=== PATIENT | female | born 1990 | race Caucasian/White ===

== ENCOUNTER 2016-10-12 14:35 | Emergency (ER) | payer MEDICAID ==
[2016-10-12] MEDS ORDERED: MORPHINE SULFATE 10 MG/ML SYRG IV ONE (14:51)
[2016-10-12] MEDS ORDERED: VANCOMYCIN HCL 1.5 GM in DEXTROSE 5 % IN WATER 250 ML IV ONE ×2 (14:52)
[2016-10-12] MEDS ORDERED: MORPHINE SULFATE 10 MG/ML SYRG ONE (14:53)
[2016-10-12] MEDS ORDERED: ONDANSETRON HCL/PF 2 MG/ML VIAL ONE (14:53)
[2016-10-12] MEDS ORDERED: ONDANSETRON HCL/PF 2 MG/ML VIAL IV ONE (14:53)
--- OUTSIDE RECORDS SUMMARY | 2016-10-12 14:53 | XMS REPORT | Continuity of Care Document ---
:1990 Author Organization [employer] [place] [address] Care Team Providers Name Role Phone Any Hernandez Primary Care Provider [phone] Source Comments This disclosure is being made pursuant to the [employer] program and maynot contain all information available regarding this patient.[employer] Active Allergies and Adverse Reactions Allergen Noted Date Severity Reactions Comments No Known Allergies 02/02/2014 Other (See Comments) Current Medications Be aware that medications may not be up to date as of this document. Alwaysverify current medications with the patient. No known medications Active Problems Problem Noted Date Depression 02/02/2014 Borderline personality disorder 10/18/2009 Overview: Overview: ANY HERNANDEZ MD Immunizations Name Dates Previously Given Next Due DTaP 01/04/1998,07/30/1995,04/25/1993,02/13/1993,0 1992 HPV Quadrivalent 01/07/2007 Hep B, Adolescent Or Pediatric 04/25/1993,1992,1992 Hepatitis A pediatric 01/07/2007 HiB PRP-T 07/30/1995,04/25/1993,02/13/1993,1992 MMR 01/04/1998,05/10/1994 Meningococcal Oligosaccharide 01/07/2007 OPV 01/04/1998,07/30/1995,09/26/1993,02/13/1993,0 1992 Tdap 01/07/2007 Social History Tobacco Use Types Packs/Day Years Used Date Former Smoker Smokeless Tobacco: Never Used Alcohol Use Drinks/Week oz/Week Comments No Alcoholic Drinks/day: ALCOHOL USE: NON-DRINKER Last Filed Vital Signs Vital Sign Reading Time Taken Blood Pressure 122/94 04/22/2015 1:44 PM PROJECT ENG Pulse 72 04/22/2015 1:44 PM PROJECT ENG Temperature 37.3 C (99.2 F) 02/15/2015 1:21 PM PROJECT ENG Respiratory Rate 18 04/22/2015 1:44 PM PROJECT ENG Height 1.695 m (5' 6.75") 04/22/2015 1:44 PM PROJECT ENG Weight 146.875 kg (323 lb 12.8 oz) 04/22/2015 1:44 PM PROJECT ENG Body Mass Index 51.12 04/22/2015 1:44 PM PROJECT ENG Oxygen Saturation 99% 07/13/2014 12:14 PM CDT Plan of Care Health Maintenance Due Date Last Done Comments HPV Vaccine (9-26YO) (2 of 2 07/08/2007 01/07/2007 - Female 2 Dose Series) Chlamydia Screening 2008 Pap Smear 2013 Influenza Immunization (#1) 2015 Tetanus/Pertussis (7 - Td) 01/07/2017 01/07/2007, Additional history exists 01/04/1998, 07/30/1995 Results from Last 3 Months Not on file Insurance Payer Benefit Plan / Subscriber ID Type Phone Address Group [employer] [place] [id number] Out of State [phone] [address]: [address] [phone] [place] [id number] GENI HORVATH Vision Self 1990 Home: [address] [phone] [place] [id number]
[2016-10-12] MEDS ORDERED: fentaNYL CITRATE/PF 50 MCG/ML AMPUL IV ONE (15:00)
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
[2016-10-12] MEDS ORDERED: fentaNYL CITRATE/PF 50 MCG/ML AMPUL ONE (15:21)
[2016-10-12] MEDS ORDERED: VANCOMYCIN HCL 1.5 GM in DEXTROSE 5 % IN WATER 500 ML IV ONE ×2 (15:30)
[2016-10-12] MEDS ORDERED: MORPHINE SULFATE 4 MG/ML SYRG ONE (16:00)
[2016-10-12] MEDS ORDERED: MORPHINE SULFATE 4 MG/ML SYRG IV ONE (16:00)
[2016-10-12] MEDS ORDERED: diphenhydrAMINE HCL 50 MG/ML VIAL IV ONE (16:06)
[2016-10-12] MEDS ORDERED: NORMAL SALINE 1,000 ML IV ONE (16:06)
[2016-10-12] MEDS ORDERED: diphenhydrAMINE HCL 50 MG/ML VIAL ONE (17:04)
[2016-10-12 17:32] VITALS: BP 147/93
== END 2016-10-12 17:20 | disposition home or self-care (01) ==
LOC: ER 14:35
PROC: 0J980ZZ Drainage of Abdomen Subcutaneous Tissue and Fascia, Open Approach (ICD-10-PCS; principal; 2016-10-12)
DX: L02.211 Cutaneous abscess of abdominal wall (principal)
CPT/HCPCS: 10061; 96365; 96366; 96375; 99284; J2405

== ENCOUNTER 2016-10-17 14:49 | Emergency (ER) | payer MEDICAID ==
--- OUTSIDE RECORDS SUMMARY | 2016-10-17 15:22 | XMS REPORT | Continuity of Care Document ---
:1990 Author Organization [employer] [place] [address] Care Team Providers Name Role Phone Any Hernandez Primary Care Provider [phone] Source Comments This disclosure is being made pursuant to the [employer] program and maynot contain all information available regarding this patient.[employer] Active Allergies and Adverse Reactions Allergen Noted [...] Taken Blood Pressure 122/94 04/22/2015 1:44 PM EXTRUSION DIE REPAIR MANAGER Pulse 72 04/22/2015 1:44 PM EXTRUSION DIE REPAIR MANAGER Temperature 37.3 C (99.2 F) 02/15/2015 1:21 PM EXTRUSION DIE REPAIR MANAGER Respiratory Rate 18 04/22/2015 1:44 PM EXTRUSION DIE REPAIR MANAGER Height 1.695 m (5' 6.75") 04/22/2015 1:44 PM EXTRUSION DIE REPAIR MANAGER Weight 146.875 kg (323 lb 12.8 oz) 04/22/2015 1:44 PM EXTRUSION DIE REPAIR MANAGER Body Mass Index 51.12 04/22/2015 1:44 PM EXTRUSION DIE REPAIR MANAGER Oxygen Saturation 99% 07/13/2014 12:14 PM CDT [...] [employer] [place] [id number] [place] of State [phone] Home: [address] [phone] [place] [id number] GENI HORVATH Vision Self 1990 Home: [address] [phone] [place] [id number]
[2016-10-17] MEDS ORDERED: LIDOCAINE HCL/EPINEPHRINE 50 ML VIAL IJ ONE ×2 (15:25→16:13)
[2016-10-17] MEDS ORDERED: MORPHINE SULFATE 10 MG/ML SYRG IM ONE (15:26)
[2016-10-17] MEDS ORDERED: VANCOMYCIN HCL 1 GM in DEXTROSE 5 % IN WATER 250 ML IV ONE ×2 (15:28)
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
[2016-10-17] MEDS ORDERED: MORPHINE SULFATE 10 MG/ML SYRG IV ONE ×2 (15:45→15:46)
[2016-10-17] MEDS ORDERED: VANCOMYCIN HCL 1.5 GM in DEXTROSE 5 % IN WATER 500 ML IV ONE ×2 (15:45)
[2016-10-17] MEDS ORDERED: MORPHINE SULFATE 10 MG/ML SYRG ONE (15:50)
[2016-10-17 15:58] LABS: Hematocrit 36.4 % (37.0-47.0); Hemoglobin 11.8 gm/dL (12.5-16.0); Mean Cell Volume 81.1 fl (78-100); Mean Corpuscular Hemoglobin 26.3 pg (27-31); Mean Corpuscular Hgb Conc 32.4 g/dl (32-36); Mean Platelet Volume 9.1 fl (6.0-9.5); Neutrophil # 10.3 K/mm3 (1.3-6.0); Neutrophil % 64.7 % (42-75.0); Platelet Count 436 K/mm3 (150-450); Red Blood Count 4.49 M/mm3 (4.2-5.4); Red Cell Distribution Width 14.6 % (11.5-14.0); White Blood Count 15.9 K/mm3 (4.0-10.5)
[2016-10-17 16:18] LABS: Albumin * 3.3 gm/dl (3.4-5.0); Anion Gap 11.1 mmol/L (6.8-13.8); Bilirubin, Total 0.4 mg/dL (0.0-1.1); CRP 3.7 mg/dL (0.0-0.9); Ca. Corrected For Albumin 9.8 mg/dL (8.4-10.2); Calcium * 9.6 mg/dL (7.9-10.9); Carbon Dioxide 28.8 mmol/L (24-32.6); Potassium 3.9 mmol/L (3.4-4.6); Total Protein 8.6 gm/dL (6.2-8.2)
[2016-10-17] MEDS ORDERED: diphenhydrAMINE HCL 50 MG/ML VIAL IV ONE (16:30)
[2016-10-17] MEDS ORDERED: diphenhydrAMINE HCL 50 MG/ML VIAL ONE (16:32)
[2016-10-17] MEDS ORDERED: MORPHINE SULFATE 2 MG/ML DISP.SYRIN IV ONE (16:42)
[2016-10-17] MEDS ORDERED: MORPHINE SULFATE 2 MG/ML DISP.SYRIN ONE (16:44)
[2016-10-17] MEDS ORDERED: HYDROcodone/ACETAMINOPHEN 1 EACH TABLET PO ONE (18:01)
[2016-10-17] MEDS ORDERED: HYDROcodone/ACETAMINOPHEN 1 EACH TABLET ONE (18:03)
[2016-10-17] MEDS ORDERED: diphenhydrAMINE HCL 50 MG CAPSULE PO ONE ×2 (19:19→19:22)
[2016-10-17 21:42] VITALS: BP 145/94
== END 2016-10-17 19:57 | disposition home or self-care (01) ==
LOC: ER 14:49
PROC: 0H97XZZ Drainage of Abdomen Skin, External Approach (ICD-10-PCS; principal; 2016-10-17)
DX: L02.411 Cutaneous abscess of right axilla (principal)

== ENCOUNTER 2016-12-04 10:09 | Emergency (ER) | payer MEDICAID ==
[2016-12-04] MEDS ORDERED: LORazepam 2 MG/ML DISP.SYRIN IM ONE (11:09)
[2016-12-04] MEDS ORDERED: MORPHINE SULFATE 4 MG/ML SYRG IM ONE (11:09)
[2016-12-04] MEDS ORDERED: MORPHINE SULFATE 4 MG/ML SYRG ONE (11:12)
[2016-12-04] MEDS ORDERED: LORazepam 2 MG/ML DISP.SYRIN ONE (11:12)
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
[2016-12-04 16:08] VITALS: BP 141/96
== END 2016-12-04 12:40 | disposition home or self-care (01) ==
LOC: ER 10:09
DX: L03.312 Cellulitis of back [any part except buttock and flank] (principal); Z87.442 Personal history of urinary calculi

== ENCOUNTER 2017-01-04 09:50 | Emergency (ER) | payer MEDICAID ==
[2017-01-04 10:00] VITALS: BP 129/85
[2017-01-04] MEDS ORDERED: IBUPROFEN 400 MG TABLET PO ONE (10:21)
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
[2017-01-04] MEDS ORDERED: IBUPROFEN 400 MG TABLET ONE (10:33)
== END 2017-01-04 10:50 | disposition home or self-care (01) ==
LOC: ER 09:50
DX: M25.561 Pain in right knee (principal); Z87.442 Personal history of urinary calculi